=== PATIENT | male | born 1980 ===

== ENCOUNTER → 2024-06-22 15:18 | Outpatient (CLI) | payer OTHER, SELFPAY ==
--- NOTE | 2024-06-22 | DI.MRI.S_ITS ---
PROCEDURE: MR LUMBAR SPINE WO CON INDICATIONS: low back pain TECHNIQUE: Noncontrast sagittal T1 spin echo and T2 fast echo, sagittal STIR, and T2 fast spin echo through the lumbar spine. In cases with scoliosis, additional coronal T2 fast spin echo may be performed. COMPARISON: None. FINDINGS: Image quality: Excellent. Alignment and Curvature: There is normal bony alignment. Bone Marrow: Marrow is of normal overall signal. No acute vertebral body compression fractures. Spinal Cord: Conus medullaris terminates at the L1 level. Visualized cord demonstrates normal signal and size. Paraspinous Soft Tissues: No paravertebral masses. T12-L1: Normal appearance. L1-L2: Normal appearance. L2-L3: Normal appearance. L3-L4: Minimal disc bulge. Very mild facet hypertrophy. No canal stenosis or foraminal stenosis. L4-L5: Disc bulge. Facet hypertrophy. No significant central canal stenosis. There is far right lateral annulus tear with focal associated lateral disc protrusion impinging on the right L4 nerve root far laterally, potentially resulting in right L4 radiculitis. Reference sagittal T2 image 5 of series 2 and axial T2 image 11 of series 5. L5-S1: Central posterior annulus tear plus minimal central posterior disc protrusion superimposed on mild disc bulge. No canal stenosis or foraminal stenosis. Bilateral facet hypertrophy. IMPRESSION: 1. Findings at L4-L5 may result in right L4 radiculitis. There is a far right lateral annulus tear plus focal associated lateral disc protrusion impinging on the right L4 nerve root. 2. At L5-S1, there is central posterior annulus tear plus minimal central posterior disc protrusion. In the acute setting, this can also result in significant symptomatology, even though there is no canal stenosis. 3. Early multilevel facet arthropathy. Dictated by: Steve Swan M.D. on 06/22/2024 at 19:15 Approved by: Steve Swan M.D. on 06/22/2024 at 19:21
== END ==
LOC: MRI 15:20
DX: M51.36 Other intervertebral disc degeneration, lumbar region (principal); M51.37 Other intervertebral disc degeneration, lumbosacral region; M51.26 Other intervertebral disc displacement, lumbar region; M47.816 Spondylosis without myelopathy or radiculopathy, lumbar region
CPT/HCPCS: 72148